=== PATIENT | female | born 1975 | race Caucasian/White ===

== ENCOUNTER 2016-12-20 14:52 | Emergency (ER) | payer OTHER ==
[~2016-12-20] VITALS: Ht 172.7 cm; Wt 120.2 kg
[~2016-12-20 14:52] MED LIST: ARIP5TAB4 PO; BECL8.7A5 IH; BUPR75TA3 PO; CETI5TAB22 PO; FLUO20CA36 PO; FLUT16SP2 NS; GABA-534 PO; IPRA21SP NS; ROPI1TAB2 PO; SALM50DI IH
[2016-12-20 15:03] VITALS: BP 141/82
[2016-12-20] MEDS ORDERED: oxyCODONE/APAP (5/325 MG) 1 UDTAB TABLET PO ONE (16:00)
[2016-12-20] MEDS ORDERED: oxyCODONE/APAP (5/325 MG) 1 UDTAB TABLET ONE (16:03)
== END 2016-12-20 16:46 | disposition home or self-care (01) ==
LOC: ER 14:56
DX: G89.29 Other chronic pain (principal); M54.5 Low back pain; M54.17 Radiculopathy, lumbosacral region; J45.909 Unspecified asthma, uncomplicated; F32.9 Major depressive disorder, single episode, unspecified; M51.26 Other intervertebral disc displacement, lumbar region
CPT/HCPCS: 99283; A4606; Z7610

== ENCOUNTER 2018-07-16 06:22 | Emergency (ER) | payer OTHER ==
[~2018-07-16] VITALS: Ht 172.7 cm; Wt 129.3 kg
[~2018-07-16 06:22] MED LIST changes: +ARIP5TAB10 PO; -ARIP5TAB4 PO
[2018-07-16] MEDS ORDERED: LORAZEPAM 1 MG TABLET ONE (06:52)
[2018-07-16] MEDS: LORAZEPAM 1 MG TABLET PO ONE (06:54)
--- NOTE | 2018-07-16 07:01 | NUR ---
EKG being done at bedside
[2018-07-16] MEDS: SALINE NASAL SPRAY 0.65% 1 BOTTLE BOTTLE NS PRN (07:42)
--- NOTE | 2018-07-16 07:48 | NUR ---
Dr Fierro at talking to patient and re-eval.
--- NOTE | 2018-07-16 07:53 | NUR ---
Patient discharged to home in stable condition. Written and verbal after care instructions given. Patient verbalizes understanding of instruction.
[2018-07-16 07:54] VITALS: BP 150/96
== END 2018-07-16 07:54 | disposition home or self-care (01) ==
LOC: ER 06:24
DX: R06.02 Shortness of breath (principal); F14.10 Cocaine abuse, uncomplicated; J45.909 Unspecified asthma, uncomplicated; F32.9 Major depressive disorder, single episode, unspecified; G89.29 Other chronic pain; G47.30 Sleep apnea, unspecified; Z60.2 Problems related to living alone; Z79.899 Other long term (current) drug therapy
CPT/HCPCS: A4606; Z7610